=== PATIENT | female | born 1945 | race Caucasian/White ===

== ENCOUNTER → 2018-09-01 | Outpatient (REF) | payer MEDICARE ==
[~2018-09-01] MED LIST: ALLERGY NA50 MCG/ACT; AMLODIPINE5 MG PO; FISH OIL1000 MG PO; FLUOXETINE10 M2 PO; GLUCOSAMINE CHO1 CA3 PO; HYZAAR1 TA1 PO; MULT VITAMI1 PO; SG ASA LOW81 M1 PO; TURMERI1 PO; VITAMIN D5000 UNIT PO; ZYRTEC10 MG PO
== END | disposition home or self-care (01) ==
LOC: MAMMO 12:20
PROVIDERS: ATTEND Nurse Practitioner
DX: Z12.31 Encounter for screening mammogram for malignant neoplasm of breast (principal); N95.1 Menopausal and female climacteric states

== ENCOUNTER → 2018-09-09 | Outpatient (REF) | payer MEDICARE ==
[2018-09-09 09:13] LABS: HEMOGLOBIN 13.4 g/dl (12.0-16.0); IMMATURE GRANULOCYTES 0.3 % (0.0-5.0); MEAN CELL VOLUME 88.7 fL CALC (80.0-100.0); MEAN CORPUSCULAR HGB CONC 32.7 g/L CALC (32.0-36.0); NEUT# 3.82 thou/uL (2.00-7.15); RED BLOOD COUNT 4.62 mill/uL (4.20-5.60); RED CELL DISTRI WIDTH 12.5 % (11.5-15.5)
[2018-09-09 09:58] LABS: ALKALINE PHOSPHATASE 54 u/l (38-126); ANION GAP 13 (6-22 (CALC)); BILIRUBIN, TOTAL 0.6 mg/dL (0.0-1.4); BUN 12 mg/dL (8-23); BUN/CREATININE RATIO 20 (12-20 (CALC)); CALCULATED LDLCHOLESTEROL 130 mg/dL (62-129 (CALC)); CARBON DIOXIDE 29 mmol/l (22-30); CHLORIDE 103 mmol/l (95-108); CHOLESTEROL HDL RATIO 4.3 (<4.4 (CALC)); CREATININE 0.6 mg/dL (0.5-1.0); GFR > 60 ML/MIN (>=60 (CALC)); GFR FOR AFR.AMER. > 60 ML/MIN (>=60 (CALC)); HDL CHOLESTEROL 45 mg/dL (>=40); POTASSIUM 3.7 mmol/l (3.5-5.1); SGOT/AST 27 u/l (9-36); SODIUM 141 mmol/l (137-146); TOTAL CHOLESTEROL 193 mg/dl (0-199); TOTAL PROTEIN 6.7 g/dL (6.3-8.2); TOTAL TRIGLYCERIDES 94 mg/dl (30-149); VLDL CHOLESTROL 19 mg/dl (0-48 (CALC))
[2018-09-09 10:23] LABS: TSH, 3RD GENERATION 2.44 uIU/mL (0.47 - 4.68)
== END | disposition home or self-care (01) ==
LOC: LAB 08:29
PROVIDERS: ATTEND Internal Medicine
DX: E78.2 Mixed hyperlipidemia (principal); I10 Essential (primary) hypertension

== ENCOUNTER → 2018-09-28 | Outpatient (REF) | payer MEDICARE ==
[~2018-09-28] VITALS: Ht 175.3 cm; Wt 134.7 kg
[2018-09-28 13:50] VITALS: BP 125/90
== END | disposition home or self-care (01) ==
LOC: PO 09:24 → ORM 09:30
PROVIDERS: ATTEND Surgery
DX: Z01.818 Encounter for other preprocedural examination (principal); R19.5 Other fecal abnormalities; I10 Essential (primary) hypertension; G47.30 Sleep apnea, unspecified; J30.2 Other seasonal allergic rhinitis; Z98.890 Other specified postprocedural states

== ENCOUNTER 2018-10-13 05:53 | Day surgery (SDC) | payer MEDICARE ==
[~2018-10-13] VITALS: Ht 175.3 cm; Wt 134.7 kg
[~2018-10-13 05:53] MED LIST changes: -ZYRTEC10 MG PO
[2018-10-13] MEDS ORDERED: ZYRTEC10 MG PO (06:11)
[2018-10-13 07:54] VITALS: BP 131/76
== END 2018-10-13 08:12 | disposition home or self-care (01) ==
LOC: ENDO 05:53 → ORM 08:45 → ENDO 08:45
PROVIDERS: ATTEND Surgery
PROC: 0DJD8ZZ Inspection of Lower Intestinal Tract, Via Natural or Artificial Opening Endoscopic (ICD-10-PCS; principal; 2018-10-13)
DX: R19.5 Other fecal abnormalities (principal); K57.30 Diverticulosis of large intestine without perforation or abscess without bleeding; K64.4 Residual hemorrhoidal skin tags; I10 Essential (primary) hypertension

== ENCOUNTER 2019-03-21 15:59 | Emergency (ER) | payer MEDICARE ==
[~2019-03-21] VITALS: Ht 175.3 cm; Wt 131.0 kg
[~2019-03-21 15:59] MED LIST changes: +ZYRTEC10 MG PO
[2019-03-21] MEDS ORDERED: SINGULAIR10 MG PO (16:26)
[2019-03-21 17:11] LABS: HEMOGLOBIN 13.5 g/dl (12.0-16.0); IMMATURE GRANULOCYTES 0.2 % (0.0-5.0); MEAN CELL VOLUME 88.1 fL CALC (80.0-100.0); MEAN CORPUSCULAR HGB 28.3 pG CALC (26.0-32.0); MEAN CORPUSCULAR HGB CONC 32.1 g/L CALC (32.0-36.0); NEUT# 5.78 thou/uL (2.00-7.15); RED BLOOD COUNT 4.77 mill/uL (4.20-5.60); RED CELL DISTRI WIDTH 12.5 % (11.5-15.5)
[2019-03-21 17:26] LABS: ALBUMIN 4.5 g/dL (3.2-5.0); ALKALINE PHOSPHATASE 69 u/l (38-126); ANION GAP 11 (6-22 (CALC)); BUN 15 mg/dL (8-23); BUN/CREATININE RATIO 24 (12-20 (CALC)); CARBON DIOXIDE 29 mmol/l (22-30); CHLORIDE 105 mmol/l (95-108); CREATININE 0.6 mg/dL (0.5-1.0); GFR > 60 ML/MIN (>=60 (CALC)); GFR FOR AFR.AMER. > 60 ML/MIN (>=60 (CALC)); SGOT/AST 32 u/l (9-36); SODIUM 141 mmol/l (137-146); TOTAL PROTEIN 7.5 g/dL (6.3-8.2)
[2019-03-21 17:27] LABS: BILIRUBIN, TOTAL 0.4 mg/dL (0.0-1.4)
[2019-03-21] MEDS ORDERED: ANTIVERT PO (18:05)
[2019-03-21] MEDS ORDERED: ZOFRAN4 M1 PO (18:05)
[2019-03-21 18:30] VITALS: BP 149/72
== END 2019-03-21 18:30 | disposition home or self-care (01) ==
LOC: ED 15:59
PROVIDERS: Emergency Medicine
DX: R42 Dizziness and giddiness (principal); R11.2 Nausea with vomiting, unspecified

== ENCOUNTER 2019-03-25 14:04 | Emergency (ER) | payer MEDICARE ==
[~2019-03-25] VITALS: Ht 175.3 cm; Wt 133.8 kg
[~2019-03-25 14:04] MED LIST changes: +ANTIVERT PO; +SINGULAIR10 MG PO; +ZOFRAN4 M1 PO
[2019-03-25 15:25] LABS: HEMATOCRIT 41.3 % (37.0-47.0); HEMOGLOBIN 13.3 g/dl (12.0-16.0); IMMATURE GRANULOCYTES 0.4 % (0.0-5.0); MEAN CELL VOLUME 86.9 fL CALC (80.0-100.0); MEAN CORPUSCULAR HGB CONC 32.2 g/L CALC (32.0-36.0); NEUT# 5.58 thou/uL (2.00-7.15); RED BLOOD COUNT 4.75 mill/uL (4.20-5.60); RED CELL DISTRI WIDTH 12.2 % (11.5-15.5)
[2019-03-25 15:55] LABS: ANION GAP 10 (6-22 (CALC)); BUN 14 mg/dL (8-23); BUN/CREATININE RATIO 21 (12-20 (CALC)); CARBON DIOXIDE 30 mmol/l (22-30); CHLORIDE 104 mmol/l (95-108); CREATININE 0.7 mg/dL (0.5-1.0); GFR > 60 ML/MIN (>=60 (CALC)); GFR FOR AFR.AMER. > 60 ML/MIN (>=60 (CALC)); POTASSIUM 3.7 mmol/l (3.5-5.1); SODIUM 141 mmol/l (137-146)
[2019-03-25] MEDS ORDERED: GINKGO BILOB60 MG PO (16:15)
[2019-03-25 16:23] LABS: URINE BILIRUBIN - DIPSTICK NEGATIVE (NEGATIVE); URINE BLOOD DIPSTICK SMALL (NEGATIVE); URINE COLOR YELLOW; URINE GLUCOSE - DIPSTICK NEGATIVE (NEGATIVE); URINE KETONE NEGATIVE (NEGATIVE); URINE LEUK ESTERASE NEGATIVE (NEGATIVE); URINE PROTEIN - DIPSTICK NEGATIVE (NEG-TRACE); URINE SPECIFIC GRAVITY >=1.030; URINE UROBILINOGEN - DIPSTICK 0.2 E.U./dL (0.2)
[2019-03-25 16:28] LABS: URINE NITRITE - DIPSTICK POSITIVE (Negative)
[2019-03-25 16:44] LABS: URINE SQUAMOUS EPITHELIAL CELL FEW EPI/hpf (0-FEW)
[2019-03-25 16:45] LABS: URINE BACTERIA MODERATE hpf
[2019-03-25 17:12] VITALS: BP 150/74
== END 2019-03-25 17:31 | disposition left against medical advice (07) ==
LOC: ED 14:04 → ED-I 16:25 → ED 17:31
PROVIDERS: Family Medicine
DX: R55 Syncope and collapse (principal); I10 Essential (primary) hypertension; Z91.19 Patient's noncompliance with other medical treatment and regimen; R82.71 Bacteriuria; R94.31 Abnormal electrocardiogram [ECG] [EKG]

== ENCOUNTER 2019-04-04 05:04 | Emergency (ER) | payer MEDICARE ==
[~2019-04-04] VITALS: Ht 172.7 cm; Wt 134.1 kg
[~2019-04-04 05:04] MED LIST changes: +GINKGO BILOB60 MG PO
[2019-04-04 05:42] LABS: HEMOGLOBIN 13.3 g/dl (12.0-16.0); IMMATURE GRANULOCYTES 0.2 % (0.0-5.0); MEAN CELL VOLUME 86.7 fL CALC (80.0-100.0); MEAN CORPUSCULAR HGB 28.1 pG CALC (26.0-32.0); MEAN CORPUSCULAR HGB CONC 32.4 g/L CALC (32.0-36.0); NEUT# 4.81 thou/uL (2.00-7.15); RED BLOOD COUNT 4.73 mill/uL (4.20-5.60); RED CELL DISTRI WIDTH 12.3 % (11.5-15.5)
[2019-04-04 06:00] LABS: ACT PARTIAL THROMBO TIME 23.8 SECONDS (20.0-32.5); D-DIMER 0.88 mg/L (0.19-0.60); INTERNATIONAL NORMALIZED RATIO 0.9 RATIO (0.7-1.3); PROTHROMBIN TIME 9.5 SECONDS (9.0-12.5)
[2019-04-04 06:02] LABS: ALBUMIN 4.2 g/dL (3.2-5.0); ALKALINE PHOSPHATASE 70 u/l (38-126); ANION GAP 14 (6-22 (CALC)); BILIRUBIN, TOTAL 0.5 mg/dL (0.0-1.4); BUN 12 mg/dL (8-23); BUN/CREATININE RATIO 18 (12-20 (CALC)); CARBON DIOXIDE 30 mmol/l (22-30); CHLORIDE 102 mmol/l (95-108); CREATININE 0.7 mg/dL (0.5-1.0); GFR > 60 ML/MIN (>=60 (CALC)); GFR FOR AFR.AMER. > 60 ML/MIN (>=60 (CALC)); POTASSIUM 3.3 mmol/l (3.5-5.1); SGOT/AST 32 u/l (9-36); SODIUM 143 mmol/l (137-146); TOTAL PROTEIN 7.6 g/dL (6.3-8.2)
[2019-04-04 06:12] LABS: MYOGLOBIN 28 ng/mL (0 - 62)
[2019-04-04 07:13] LABS: URINE BILIRUBIN - DIPSTICK NEGATIVE (NEGATIVE); URINE BLOOD DIPSTICK SMALL (NEGATIVE); URINE COLOR YELLOW; URINE GLUCOSE - DIPSTICK NEGATIVE (NEGATIVE); URINE KETONE NEGATIVE (NEGATIVE); URINE LEUK ESTERASE NEGATIVE (NEGATIVE); URINE NITRITE - DIPSTICK NEGATIVE (Negative); URINE PH 5.5 (4.5-8.0); URINE PROTEIN - DIPSTICK NEGATIVE (NEG-TRACE); URINE SPECIFIC GRAVITY 1.015; URINE UROBILINOGEN - DIPSTICK 0.2 E.U./dL (0.2)
[2019-04-04 07:17] LABS: URINE RBC 0-2 RBC/hpf (0-5); URINE WBC 0-2 WBC/hpf (0-5)
[2019-04-04] MEDS ORDERED: POTASSIUM CHLO20 ME1 PO (08:15)
[2019-04-04 08:50] VITALS: BP 168/69
== END 2019-04-04 08:50 | disposition home or self-care (01) ==
LOC: ED 05:04
PROVIDERS: Family Medicine
DX: R00.2 Palpitations (principal); E87.6 Hypokalemia; I10 Essential (primary) hypertension
CPT/HCPCS: J2060; Q9967

== ENCOUNTER 2019-05-20 09:15 | Emergency (ER) | payer MEDICARE ==
[~2019-05-20] VITALS: Ht 172.7 cm; Wt 135.9 kg
[~2019-05-20 09:15] MED LIST changes: +POTASSIUM CHLO20 ME1 PO
[2019-05-20] MEDS ORDERED: ASPIRIN81 MG PO (09:50)
[2019-05-20] MEDS ORDERED: MECLIZINE25 MG PO (09:51)
[2019-05-20] MEDS ORDERED: FLONASE SE27.5 MCG/S (09:51)
[2019-05-20] MEDS ORDERED: KAPSPARGO SPRIN25 MG (09:53)
[2019-05-20 09:56] LABS: HEMATOCRIT 41.6 % (37.0-47.0); HEMOGLOBIN 13.5 g/dl (12.0-16.0); IMMATURE GRANULOCYTES 0.4 % (0.0-5.0); MEAN CELL VOLUME 86.5 fL CALC (80.0-100.0); MEAN CORPUSCULAR HGB 28.1 pG CALC (26.0-32.0); MEAN CORPUSCULAR HGB CONC 32.5 g/L CALC (32.0-36.0); NEUT# 6.38 thou/uL (2.00-7.15); RED BLOOD COUNT 4.81 mill/uL (4.20-5.60); RED CELL DISTRI WIDTH 12.8 % (11.5-15.5)
[2019-05-20 10:13] LABS: ANION GAP 13 (6-22 (CALC)); BUN 14 mg/dL (8-23); BUN/CREATININE RATIO 22 (12-20 (CALC)); CARBON DIOXIDE 31 mmol/l (22-30); CHLORIDE 101 mmol/l (95-108); CREATININE 0.6 mg/dL (0.5-1.0); GFR > 60 ML/MIN (>=60 (CALC)); GFR FOR AFR.AMER. > 60 ML/MIN (>=60 (CALC)); POTASSIUM 3.6 mmol/l (3.5-5.1); SODIUM 141 mmol/l (137-146)
[2019-05-20 10:36] LABS: INTERNATIONAL NORMALIZED RATIO 0.9 RATIO (0.7-1.3); PROTHROMBIN TIME 9.6 SECONDS (9.0-12.5)
[2019-05-20 10:49] VITALS: BP 151/72
== END 2019-05-20 11:20 | disposition short-term general hospital (02) ==
LOC: ED 09:15
PROVIDERS: Family Medicine
DX: I20.0 Unstable angina (principal); I10 Essential (primary) hypertension
CPT/HCPCS: J1644